=== PATIENT | female | born 1995 | race Caucasian/White ===

== ENCOUNTER → 2021-03-08 14:41 | Outpatient (CLI) | payer BC, SELFPAY ==
--- NOTE | ~2021-03-08 | XR_ITS ---
EXAMINATION: XR wrist LT min 3V DATE: 03/08/2021 15:05 INDICATION: Left wrist pain. TECHNIQUE: 4 views of left wrist were obtained. COMPARISON: None. FINDINGS: Bone alignment is normal. No fracture. Joint spaces are well maintained. IMPRESSION: 1. Normal left wrist. Reviewed, dictated and finalized at location B. IMPRESSION: 1. Normal left wrist.
== END ==
PROVIDERS: PCP Physician Assistant; Visit Provider Physician Assistant
DX: M25.539 Pain in unspecified wrist (principal)
CPT/HCPCS: 73110